=== PATIENT | male | born 1995 | race American Indian/Alaskan Native ===

== ENCOUNTER 2020-09-02 12:46 | Emergency (ER) | payer BC ==
[2020-09-02 12:54] VITALS: BP 158/91
--- NOTE | 2020-09-02 15:57 | Emergency Department Report ---
ED General Adult HPI - General Chief complaint: Medical Clearance Stated complaint: BODY FEELS NUMB/BODY OFF Time Seen by Provider: 09/02/20 15:52 Source: patient Mode of arrival: Ambulatory Limitations: No Limitations - History of Present Illness Initial comments: 25-year-old male states while making breakfast this morning he had sudden onset of feeling weird with tingling sensation of his hands and heaviness in his chest. His symptoms disappeared spontaneously. Patient states around 3 AM he took of packet of Emergen C and water. He denies fever chest pain shortness of breath cough chills. Patient reports a history of hyperthyroidism while in high school he was placed on medication but they were discontinued by his doctor once his numbers normalized. Patient also reports a 25 pound weight loss in 2 months with walking and diet. All symptoms resolved. Pt with no complaints. -: Sudden Associated Symptoms: denies other symptoms Treatments Prior to Arrival: none - Related Data Allergies Allergy/AdvReac Type Severity Reaction Status Date / Time No Known Allergies Allergy Unverified 09/02/20 12:51 ED Review of Systems ROS: Stated complaint: BODY FEELS NUMB/BODY OFF Other details as noted in HPI Comment: All other systems reviewed and negative Constitutional: no symptoms reported Respiratory: no symptoms reported Cardiovascular: denies: chest pain, palpitations, dyspnea on exertion, edema, syncope, paroxysmal nocturnal dyspnea Endocrine: denies: excessive sweating, flushing, intolerance to cold Gastrointestinal: denies: abdominal pain, constipation Psychiatric: denies: anxiety, auditory hallucinations ED Past Medical Hx - Past Medical History Previous Medical History?: Yes Additional medical history: Hyperthyroidism - Surgical History Past Surgical History?: No ED Physical Exam - General Limitations: No Limitations General appearance: alert, in no apparent distress - Head Head exam: Present: atraumatic - Eye Eye exam: Present: normal appearance. Absent: conjunctival injection - ENT ENT exam: Present: normal exam - Neck Neck exam: Present: normal inspection - Respiratory Respiratory exam: Present: normal lung sounds bilaterally. Absent: respiratory distress, wheezes, rales, rhonchi - Cardiovascular Cardiovascular Exam: Present: regular rate, normal heart sounds - GI/Abdominal GI/Abdominal exam: Absent: soft, distended - Rectal Rectal exam: Absent: deferred - exam: Present: normal inspection - Extremities Exam Extremities exam: Present: normal inspection - Back Exam Back exam: Present: normal inspection - Neurological Exam Neurological exam: Present: alert, oriented X3 - Psychiatric Psychiatric exam: Present: normal affect - Skin Skin exam: Present: warm, dry, intact ED Course Vital Signs 09/02/20 12:53 Temperature 98.5 F Pulse Rate 81 Respiratory 18 Rate Blood Pressure 158/91 O2 Sat by Pulse 99 Oximetry - Reevaluation(s) Reevaluation #1: 09/02/20 16:45 Stable in no distress ED Medical Decision Making - Lab Data Result diagrams: 09/02/20 15:59 09/02/20 15:59 - Medical Decision Making Thyroid function panel within normal limits CBC and chemistry no acute findings. Patient with no distress no complaints of pain this is most likely a stress reaction patient instructed to follow-up with his primary care doctor copy of lab results given to patient Critical Care Time: No Critical care attestation.: If time is entered above; I have spent that time in minutes in the direct care of this critically ill patient, excluding procedure time. ED Disposition Clinical Impression: Anxiety, Well adult exam Disposition: DC-01 TO HOME OR SELFCARE Is pt being admited?: No Does the pt Need Aspirin: No Condition: Stable Instructions: Anxiety (ED) Additional Instructions: Follow-up with your primary care doctor. Return to the emergency room for any worsening symptoms such as chest pain shortness of breath fever chills cough Referrals: GABINO HODGE MD [Staff Physician] - 3-5 Days PRIMARY CAREMD [Primary Care Provider] - 3-5 Days
[2020-09-02 16:24] LABS: Hematocrit 45.8 % (35.5-45.6); Hemoglobin 15.5 gm/dl (11.8-15.2); Mean Corpuscular HGB Conc 34 % (32-34); Mean Corpuscular Volume 87 fl (84-94); Platelet Count 210 K/mm3 (140-440); Red Blood Count 5.29 M/mm3 (3.65-5.03); Red Cell Distribution Width 14.1 % (13.2-15.2)
[2020-09-02 16:45] LABS: Blood Urea Nitrogen 10 mg/dL (9-20); Calcium 9.8 mg/dL (8.4-10.2); Hemolysis Index 4
[2020-09-02 16:46] LABS: BUN/Creatinine Ratio 14
[2020-09-02 17:01] LABS: Free T4 (Free Thyroxine) 1.28 ng/dL (0.76-1.46)
== END 2020-09-02 18:10 | disposition home or self-care (01) ==
LOC: ED 12:46
DX: F41.9 Anxiety disorder, unspecified (principal); E03.9 Hypothyroidism, unspecified; Z00.00 Encounter for general adult medical examination without abnormal findings
CPT/HCPCS: 36415; 80048; 84439; 84443; 85027